=== PATIENT | female | born 1950 | race Caucasian/White ===

== ENCOUNTER 2017-07-27 05:15 | Inpatient (IN) | payer MEDICARE, BC ==
[2017-07-26 11:22] LABS: HEMATOCRIT 42.7 % (36.0-48.0); HEMOGLOBIN 13.8 g/dL (12-16); MCH 29.2 pg (26.0-34.0); MCHC 32.3 g/dL (31.0-37.0); MCV 90.5 fL (80.0-100.0); MEAN PLATELET VOLUME 9.7 fL (7.4-10.4); RBC 4.72 10x6/uL (4.00-5.40); RDW 12.6 % (11.5-14.5); WBC 7.6 10x3/uL (4.8-10.8)
[2017-07-27] VITALS (18 sets, daily range): BP systolic 115–125; BP diastolic 52–61; Ht 167.6 cm; Wt 63.6 kg
[~2017-07-27] VITALS: Ht 167.6 cm; Wt 63.6 kg
[~2017-07-27 05:15] MED LIST: ANORO ELLIPTA1 EACH INH; HYDROCODON-ACE1 EAC7 PO; NORVASC10 MG PO; PROLIA INJ 660 MG/M1 IJ; SYNTHROID75 MCG PO
[2017-07-27] MEDS ORDERED: PLAQUENIL200 MG PO ×2 (06:23)
--- NOTE | 2017-07-27 10:26 | NUR ---
PT ARRIVED BY BED FROM RECOVERY. SWITCHED OVER TO ICU MONITORS. PT AWAKENS TO VOICE. FOLLOWS COMMANDS. VSS AT THIS TIME.
--- NOTE | 2017-07-27 12:30 | NUR ---
PT'S FAMILY AT BEDSIDE. UPDATED ON PTS' STATUS.
--- NOTE | 2017-07-27 14:44 | NUR ---
PT RESTING COMFORTABLY. DENIES PAIN AT THIS TIME. CALL LIGHT WITHIN REACH.
--- NOTE | 2017-07-27 17:10 | NUR ---
PT RESTING IN BED WITH EYES CLOSED. RESP EQUAL AND UNLABORED. CALL LIGHT WITHIN REACH.
--- NOTE | 2017-07-27 19:30 | NUR ---
REPORT RECEIVED CARE ASSUMED. INITIAL SHIFT ASSESSMENT COMPLETED SEE FLOWSHEET. PT SLEEPING INITIALLY EASILY AWAKEN. ORIENTED X 4. RIGHT ANTERIOR NECK INCISION WNL DERMABOND PRESENT. PT DENIES DISCOMFORT. NO SWALLOWING DIFFICULTIES. TOLERATING CLEAR LIQUIDS WELL NO N/V. PT CONNECTED TO STANDARD CVICU MONITORS WITH ALL ALARMS VERIFIED AND SET. RIGHT WRIST PIV CONNECTED TO TUBING BUT IS S/L. CALL LIGHT IN REACH OF PT AND PT ADVISED TO CALL FOR ASSISTANCE. PT DENIES NEED TO VOID AT THIS TIME WILL CONTINUE TO MONITOR
--- NOTE | 2017-07-27 21:00 | NUR ---
PT UP TO BATHROOM WITH STEADY GAIT. SOFT NECK COLLAR WORN. PT VOIDED FREELY CLEAR YELLOW URINE. REFUSED ANY HS CARE STATING SHE WAS FINE JUST WANTED TO GO BACK TO BED AND WOULD TEND TO PERSONAL HYGIENE IN THE MORNING. CONTINUES TO DENY NAUSEA TOLERATING CLEAR LIQUIDS.
--- NOTE | 2017-07-27 23:00 | NUR ---
SHIFT REASSESSMENT COMPLETED NO SIGNIFICANT CHANGES. PT HAS BEEN SLEEPING WELL RESP REG AND NONLABORED. EASILY AWAKEN NEUROLOGICALLY INTACT. INCISION AND AREA AROUND INCISION UNCHANGED
[2017-07-28] VITALS (11 sets, daily range): BP systolic 110–128; BP diastolic 54–69
--- NOTE | 2017-07-28 01:00 | NUR ---
PT SLEEPING RESP REG AND NONLABORED.
--- NOTE | 2017-07-28 03:00 | NUR ---
SHIFT REASSESSMENT NO SIGNIFICANT CHANGES
--- NOTE | 2017-07-28 05:00 | NUR ---
PT UP TO BATHROOM WITH SOFT CERVICAL COLLAR AMBULATED STEADY GAIT VOIDED FREELY. DENIES PAIN
--- NOTE | 2017-07-28 07:15 | NUR ---
REPORT RECIEVED. FULL ASSESSMENT COMPLETE PER FLOWSEET. REFER FOR DETAILS. VSS. WILL MONITOR FOR CHANGES THROUGHOUT SHIFT.
[2017-07-28] MEDS ORDERED: ANORO ELLIPTA1 EACH INH (09:49)
[2017-07-28] MEDS ORDERED: HYDROCODON-ACE1 EAC7 PO (09:50)
[2017-07-28] MEDS ORDERED: NORVASC10 MG PO (09:50)
[2017-07-28] MEDS ORDERED: PLAQUENIL200 MG PO (09:50)
[2017-07-28] MEDS ORDERED: PROLIA INJ 660 MG/M1 IJ (09:51)
[2017-07-28] MEDS ORDERED: SYNTHROID75 MCG PO (09:51)
--- NOTE | 2017-07-28 10:00 | NUR ---
DISCHARGE INSTRUCTIONS REVIEWED WITH PT. QUESTIONS ANSWERED. D/C'D HOME VIA W/C. PAPERWORK SIGNED. C-COLLAR ON AND UNDERSTANDS TO WEAR WHEN SHE IS AMBULATING.
--- NOTE | 2017-08-10 13:26 | OP ---
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 PROCEDURE: Anterior cervical discectomy and fusion with removal of osteophytes and foraminotomies at C5-C6 and C6-C7. Zavation spine, anterior cervical plate and screws, 32 mm midline plate, 16-mm screws times 3, 6-mm cage at C6-C7, and 7-mm cage at C5-C6. Allograft with bone stem cells. DESCRIPTION AND TECHNIQUE: After induction of general endotracheal anesthesia, the patient was positioned supine on the operating table. Neck was prepped and draped in usual sterile fashion. Fluoroscopic x-ray and freer localized the C5-C6 interspace. A transverse skin incision was carried out from midline at the sternocleidomastoid muscle. The platysma was divided with Bovie cautery. Using blunt and sharp dissection with Metzenbaum scissors, I proceeded in an avascular plane medial to the carotid sheath. The C5-C6 and C6-C7 interspaces were confirmed with fluoroscopic x-ray and a spinal needle. Longus colli muscles were elevated from bodies of C5-C6 and C6-C7. A self-retaining retractor was placed deep to the longus colli muscles. Distracting pins were placed at C5, C6, and C7 vertebral bodies. The disc space was distracted with a Tallmadge's pins, both disc spaces were incised with #11 blade. Disc material was removed with pituitary rongeurs and curettes. Osteophytes were drilled away posteriorly with a Midas-Chaim drill. The posterior longitudinal ligament was removed with Cloward rongeurs. A PEEK interbody cage was placed in each interspace, prior to this was filled with Shala Bone allograft and bone stem cells. Prior to this, C6-C7 interspace and C5-C6 interspaces were cleared with osteophytes with Midas-Chaim drill and microscope and posterior ligaments removed at each level. A Zavation midline plate was used to span C5-C6 and C6-C7 interspaces, 16-mm screws were placed through the holes in the plate. Locking hinges tightened over the screw heads. Meticulous hemostasis was maintained throughout the wound. The wound was irrigated with copious amounts of Ancef irrigant solution. The platysma and subdermal layer were closed with interrupted 3-0 Vicryl suture. The skin was reapproximated with Dermabond skin adhesive. Good position of the hardware was confirmed with fluoroscopic x-ray. TRANSINT:[id number] Voice Confirmation ID: [id number] DOCUMENT ID: [id number] BENY PEDRO MD at 1326 CC: [id number] DICTATION DATE: 07/28/17 1525 COMMUNICATIONS INSTRUCTOR: 07/28/17 1618 DIS IN 07/28/17 [id number] [place] [address]
== END 2017-07-28 10:00 | disposition home or self-care (01) | DRG 473 ==
LOC: D.CVICU 05:15 → D.SDCHOLD 05:15 → D.CVICU 10:09
PROVIDERS: Anesthesiology; ADMIT Neurological Surgery
PROC: 0RG20K0 Fusion of 2 or more Cervical Vertebral Joints with Nonautologous Tissue Substitute, Anterior Approach, Anterior Column, Open Approach (ICD-10-PCS; 2017-07-27)
PROC: 0RB30ZZ Excision of Cervical Vertebral Disc, Open Approach (ICD-10-PCS; 2017-07-27)
PROC: 0RG20A0 Fusion of 2 or more Cervical Vertebral Joints with Interbody Fusion Device, Anterior Approach, Anterior Column, Open Approach (ICD-10-PCS; principal; 2017-07-27 07:30)
DX: M50.222 Other cervical disc displacement at C5-C6 level (principal); M50.223 Other cervical disc displacement at C6-C7 level; M25.78 Osteophyte, vertebrae